=== PATIENT | female | born 1975 | race Caucasian/White ===

== ENCOUNTER 2017-01-21 08:59 | Emergency (ER) | payer OTHER ==
[~2017-01-21] VITALS: Ht 170.2 cm; Wt 63.5 kg
[~2017-01-21 08:59] MED LIST: Levothroid,Synthroid PO; Motrin PO; NATALCARE RX1 TABLET PO; Percocet 5/325,Endoc PO
[2017-01-21] MEDS ORDERED: PANTOPRAZOLE SO40 MG PO (09:09)
[2017-01-21] MEDS ORDERED: LEVOTHYROXINE137 MCG PO (09:09)
[2017-01-21] MEDS ORDERED: MOTRIN600 MG PO (10:26)
[2017-01-21] MEDS ORDERED: BACLOFEN10 MG PO (10:26)
[2017-01-21 10:37] VITALS: BP 146/94
== END 2017-01-21 10:39 | disposition home or self-care (01) ==
LOC: EME → EDBD 08:59 → EME 10:39
DX: S16.1XXA Strain of muscle, fascia and tendon at neck level, initial encounter (principal); E03.9 Hypothyroidism, unspecified; V44.5XXA Car driver injured in collision with heavy transport vehicle or bus in traffic accident, initial encounter; Z87.891 Personal history of nicotine dependence
CPT/HCPCS: 72040; 99281; 99285

== ENCOUNTER 2017-12-03 15:12 | Emergency (ER) | payer OTHER ==
[~2017-12-03] VITALS: Ht 170.2 cm; Wt 69.8 kg
[~2017-12-03 15:12] MED LIST changes: +BACLOFEN10 MG PO; +LEVOTHYROXINE137 MCG PO; +MOTRIN600 MG PO; +PANTOPRAZOLE SO40 MG PO
[2017-12-03 16:10] LABS: HEMATOCRIT 41.2 % (36.0-46.0); HEMOGLOBIN 14.3 G/DL (11.9-15.5); MCH 31.2 PG (29.0-34.0); MCHC 34.7 G/DL (30.0-36.0); PLATELET COUNT 308 K/uL (156-360); RBC DIS.WIDTH-CV 11.9 % (11.8-14.6); RBC DIS.WIDTH-SD 39.2 % (39-53); RED BLOOD COUNT 4.58 M/uL (3.80-5.20); WHITE BLOOD COUNT 15.5 K/uL (4.1-10.2)
[2017-12-03 16:18] LABS: CHLORIDE 105 mEq/L (99-109); POTASSIUM 3.8 mEq/L (3.7-5.4); SODIUM 136 mEq/L (136-147)
[2017-12-03 16:20] LABS: GLUCOSE 106 mg/dL (70-99)
[2017-12-03 16:24] LABS: GFR ESTIMATE (CALCULATED) > 59 mL/min/; UREA NITROGEN (BUN) 15 mg/dL (9-23)
[2017-12-03 16:32] LABS: QUANTITATIVE HCG < 4.0 MIU/ML; TROP-I INTERPRETATION NEGATIVE; TROPONIN-I < 0.01 ng/mL (0.0-0.30)
[2017-12-03 17:59] LABS: TROP-I INTERPRETATION NEGATIVE; TROPONIN-I < 0.01 ng/mL (0.0-0.30)
[2017-12-03 18:08] VITALS: BP 135/88
== END 2017-12-03 18:09 | disposition home or self-care (01) ==
LOC: EME 15:12
PROVIDERS: Nurse Practitioner Family
DX: R07.89 Other chest pain (principal); R42 Dizziness and giddiness; M54.2 Cervicalgia; G89.29 Other chronic pain; E03.9 Hypothyroidism, unspecified; Z87.891 Personal history of nicotine dependence; Z82.3 Family history of stroke
CPT/HCPCS: 71046; 80048; 84484; 84702; 85027; 93005; 99281; 99284